=== PATIENT | female | born 1985 | race Caucasian/White ===

== ENCOUNTER 2023-11-21 19:18 | Outpatient (CLI) | payer OTHER, SELFPAY ==
[2023-11-21 23:02] LABS: Amphetamine/Metha Screen,Urine Negative ng/ml (<1000)
[2023-11-21 23:03] LABS: Barbiturates Screen,Urine Negative ng/ml (<200); Benzodiazepines Screen,Urine Negative ng/ml (<200)
[2023-11-21 23:04] LABS: Cannabinoid Screen,Urine Negative ng/ml (<50)
[2023-11-21 23:05] LABS: Cocaine Screen,Urine Negative ng/ml (<300); Methadone Screen,Urine Negative ng/ml (<300)
[2023-11-21 23:06] LABS: Opiate Screen,Urine Negative ng/ml (<300)
[2023-11-21 23:07] LABS: Phencyclidine Screen,Urine Negative ng/ml (<25)
[2023-11-26 11:22] LABS: Alprazolam Negative (Cutoff=100); Benzodiazepines Positive ng/mL (Cutoff=100); Clonazepam Positive (.); Clonazepam Confirm 336 ng/mL (Cutoff=100); Flurazepam Negative (Cutoff=100); Lorazepam Negative (Cutoff=100); Midazolam Negative (Cutoff=100); Temazepam Negative (Cutoff=100); Triazolam Negative (Cutoff=100)
== END 2023-11-21 23:59 ==
LOC: LAB.DROPOF 19:18
PROVIDERS: PCP Nurse Practitioner Family; Visit Provider Nurse Practitioner Family
DX: Z79.899 Other long term (current) drug therapy (principal); F41.9 Anxiety disorder, unspecified
CPT/HCPCS: 80307; 80346

== ENCOUNTER 2023-12-19 21:59 | Outpatient (CLI) | payer OTHER, SELFPAY ==
[2023-12-21 12:13] LABS: HBsAg Screen Negative (Negative); HCV Ab Non Reactive (Non Reactive); HIV Screen 4th Generation wRfx Non Reactive (Non Reactive); Hep A Ab, IGM Negative (Negative); Hep B Core Ab, IgM Negative (Negative)
== END 2023-12-19 23:59 ==
LOC: LAB.DROPOF 21:59
PROVIDERS: PCP Internal Medicine; Visit Provider Internal Medicine
DX: R53.83 Other fatigue (principal)
CPT/HCPCS: 80074; 86703; G0432

== ENCOUNTER 2024-03-05 19:03 | Outpatient (CLI) | payer OTHER, SELFPAY ==
[2024-03-05 19:52] LABS: Alanine Aminotransferase 15 U/L (12-78); Albumin/Globulin Ratio 1.6 (1.1-1.8); Alkaline Phosphatase 74 U/L (38-126); Anion Gap 9.7 mEq/L (5-15); Aspartate Amino Transferase 28 U/L (14-36); Bilirubin,Total 0.5 mg/dl (0.2-1.3); Blood Urea Nitrogen 13 mg/dl (7-17); Carbon Dioxide 31 mmol/L (22.0-30.0); Chloride 100 mmol/L (98-107); Chol/HDL Ratio 3.4 (1-3.5); Cholesterol 221 mg/dl (140-200); Estimated Glomerular Filt Rate 93 ml/min (>60); GFR (African American) 113 ML/MIN (>60); Globulin 2.5 g/dL (1.3-3.2); Glucose 99 mg/dl (74-100); HDL Cholesterol 65 mg/dl (40-60); Potassium 3.7 mmoL/L (3.5-5.1); Sodium 137 mmol/L (136-145); Total Protein,Serum 6.5 g/dl (6.3-8.2); Triglycerides 135 mg/dl (30-150); VLDL Cholesterol 27 mg/dL (0-40)
[2024-03-05 19:57] LABS: Basophils # 0.1 K/mm3 (0-0.2); Basophils % 0.9 % (0.1-2.0); Eosinophils # 0.1 K/mm3 (0.0-0.4); Eosinophils % 1.8 % (0.1-12.0); Hematocrit 38.8 % (37.0-47.0); Hemoglobin 12.8 g/dL (12.2-16.2); Lymphocytes % 41.1 % (10-50); Mean Corpuscular HGB Conc 33.1 g/dL (31.8-35.4); Mean Corpuscular Hemoglobin 31.4 pg (27.0-31.2); Mean Corpuscular Volume 94.9 fl (81-99); Mean Platelet Volume 8.7 fl (7.4-10.4); Monocytes # 0.6 K/mm3 (0.1-1.0); Monocytes % 7.4 % (1.7-9.3); Neutrophils # 3.6 K/mm3 (1.8-7.8); Neutrophils % 48.8 % (37.0-80.0); Platelet Count 299 K/mm3 (142-424); Red Blood Count 4.09 M/mm3 (4.20-5.40); Red Cell Distribution Width 13.3 % (11.5-17.5); White Blood Count 7.4 K/mm3 (4.8-10.8)
[2024-03-05 20:03] LABS: Direct LDL Cholesterol 130.51 mg/dL (100-129)
[2024-03-05 20:08] LABS: 25-OH Vitamin D, Total 37.2 ng/mL (30-100)
[2024-03-05 20:29] LABS: Hemoglobin A1C 5.4 % (4.0-6.0)
[2024-03-05 20:40] LABS: Vitamin B12 587 pg/mL (239-931)
[2024-03-05 22:11] LABS: Creatinine,Urine Random 78 mg/dL (Not Estab.)
== END 2024-03-05 23:59 | disposition home or self-care (01) ==
PROVIDERS: PCP Internal Medicine; Visit Provider Internal Medicine
DX: R53.83 Other fatigue (principal); F41.1 Generalized anxiety disorder; F43.10 Post-traumatic stress disorder, unspecified; E66.9 Obesity, unspecified; Z79.899 Other long term (current) drug therapy; Z72.0 Tobacco use
CPT/HCPCS: 80053; 80061; 82043; 82306; 82570; 82607; 83036; 85025

== ENCOUNTER 2024-10-23 16:16 | Outpatient (CLI) | payer OTHER, SELFPAY ==
[2024-10-23 19:06] LABS: Free T4 (Free Thyroxine) 0.85 ng/dl (0.78-2.19)
[2024-10-23 19:22] LABS: Thyroid Stimulating Hormone 1.14 uIU/mL (0.465-4.68)
[2024-10-23 23:07] LABS: Opiate Screen,Urine Negative ng/ml (<300)
[2024-10-23 23:08] LABS: Cocaine Screen,Urine Negative ng/ml (<300)
[2024-10-23 23:09] LABS: Phencyclidine Screen,Urine Negative ng/ml (<25)
[2024-10-24 00:12] LABS: Amphetamine/Metha Screen,Urine Negative ng/ml (<1000)
[2024-10-24 00:13] LABS: Barbiturates Screen,Urine Negative ng/ml (<200); Benzodiazepines Screen,Urine Negative ng/ml (<200)
[2024-10-24 00:14] LABS: Cannabinoid Screen,Urine Negative ng/ml (<50)
[2024-10-24 00:15] LABS: Methadone Screen,Urine Negative ng/ml (<300)
== END 2024-10-23 23:59 | disposition home or self-care (01) ==
LOC: LAB.DROPOF 10-24 10:26
PROVIDERS: PCP Nurse Practitioner Acute Care; Visit Provider Nurse Practitioner Acute Care
DX: F33.9 Major depressive disorder, recurrent, unspecified (principal); F11.91 Opioid use, unspecified, in remission; Z79.899 Other long term (current) drug therapy; F43.10 Post-traumatic stress disorder, unspecified; F41.1 Generalized anxiety disorder; F41.0 Panic disorder [episodic paroxysmal anxiety]
CPT/HCPCS: 80307; 84439; 84443